=== PATIENT | male | born 2005 | race Caucasian/White ===

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

== ENCOUNTER 2024-09-28 18:00 | Emergency (ER) | payer OTHER, SELFPAY ==
--- NOTE | 2024-09-28 18:02 | ED_ITS ---
HPI - URI/Sore Throat General Chief Complaint: Upper Respiratory Infection Stated Complaint: Cold Like Time Seen by Provider: 09/28/24 18:02 Source: patient Mode of arrival: ambulatory Limitations: no limitations History of Present Illness HPI Narrative: Wilber is a 19-year-old male patient presenting to the clinic today with complaints cough, headache, sore throat, nasal congestion, postnasal drip, and low-grade fever. He reports symptoms have been going on for approximately 6-7 days. Feels like he has got some chest tightness and pain in his chest when coughing. MD elicited complaint: sore throat and nasal congestion Related Data Home Medications ?Medication ?Instructions ?Recorded ?Confirmed ?Last Taken ?Type albuterol 90 mcg/actuation aerosol mcg inhalation 09/28/24 Unknown History inhaler Allergies Allergy/AdvReac Type Severity Reaction Status Date / Time No Known Allergies Allergy Verified 09/28/24 18:10 Review of Systems Review of Systems: Pertinent positives per HPI. Patient denies any rash,visual changes, dizziness, palpitations, nausea, vomiting, diarrhea, constipation, abdominal pain, or any urinary issues. PMFSH Comments At the time of my signature, I reviewed and agree with the nursing past medical, surgical, social, and family history. There is no relevant family history pertinent to the patient complaint. Exam Narrative: General: Well-developed, well nourished, in no apparent distress Head: Normocephalic, atraumatic Eyes: Pupils equally round and reactive to light bilaterally, EOM intact, sclera and conjunctive clear, no discharge, lids normal Ears: TMs intact and congested, ear canals clear, no drainage, grossly hearing normal. Nose: Nares patent, clear nasal discharge, severe inflammation, maxillary sinus tenderness. Mouth: Oral pharynx red without lesions or masses, good dentition, MMM. Postnasal drip Neck: Supple, trachea midline, no enlargement of anterior or posterior cervical nodes, no thyroid masses or goiter palpable. Cardio: Regular rate and rhythm, s1 and s2 normal, no murmur appreciated. Resp: Lung sounds tight diminished in the bases, no rhonchi, rales, wheezing or rubs. DuoNeb treatment was given and lung sounds aeration improved Course Course Emergency Course: Portions of this record may have been created with voice recognition software. Level of Care: Express Care Visit Vital Signs Vital signs: Vital Signs Temperature 36.9 C 09/28/24 18:09 Pulse Rate 111 H 09/28/24 18:09 Respiratory Rate 18 09/28/24 18:09 Blood Pressure 148/80 H 09/28/24 18:09 Pulse Oximetry 100 09/28/24 18:09 Oxygen Delivery Room Air 09/28/24 18:09 Temperature 36.9 C 09/28/24 18:09 Pulse Rate 111 H 09/28/24 18:09 Respiratory Rate 18 09/28/24 18:09 Blood Pressure 148/80 H 09/28/24 18:09 Pulse Oximetry 100 09/28/24 18:09 Oxygen Delivery Room Air 09/28/24 18:09 Vital signs reviewed MDM - URI/Sore Throat MDM Narrative Medical decision making narrative: At the time of visit patient is resting comfortably on the exam table. Patient appears to be nontoxic. Labs: Strep test was obtained and negative in the clinic today. Send strep for culture Medications: Hand-held neb DuoNeb treatment given in the clinic today Plan: I suspect patient has URI with cough and congestion/postnasal drip versus atypical pneumonia. Prescription for azithromycin, Tessalon Perles, prednisone, albuterol solution, and albuterol inhaler was sent to the pharmacy Supportive measures were discussed with the patient and they voiced understanding discharge instructions and agrees to treatment plan. Return precautions reviewed Differential Diagnosis Differential diagnosis: Likely upper respiratory infection, otitis media, sinusitis, viral infection, bronchitis, influenza, pharyngitis and other (COVID) Lab Data Labs: Lab Results 09/28/24 Range/Units 18:26 POC Grp A Strep Screen Negative (Negative) Discharge Plan Discharge Clinical Impression: Upper respiratory infection with cough and congestion, PND (post-nasal drip) Patient Disposition: Home Condition: Stable Instructions: Antibiotic Form, Cold Symptoms (ED) Additional Instructions: Strep test was negative in the clinic today. We will send strep for culture if this comes back positive we will contact you in place you on antibiotics at that time Take prescription medications only as prescribed-albuterol inhaler, albuterol nebulizer solution, prednisone, azithromycin, and Tessalon Perles Increase fluids and stay well hydrated Tylenol/motrin for pain/fever Flonase and OTC antihistamines as directed Vicks vapor rub to open sinuses Sinus rinses for congestion Cepacol spray, cough drops, throat lozenges, warm tea with honey/lemon, gargle salt water to soothe throat BRAT diet for diarrhea Clear liquids x 24 hours then advance as tolerated for nausea/vomiting Go to the ED if you develop a worsening in your condition- high fever not controlled by Tylenol or Motrin, dehydration, weakness, lethargy, shortness of breath, or chest pain. Follow up with your PCP in 3-5 days if symptoms persist. Patient Language: Portuguese Prescriptions: New benzonatate 200 mg capsule 200 mg PO TID 7 Days Qty: 21 0RF prednisone 20 mg tablet 40 mg PO DAILY 5 Days Qty: 10 0RF albuterol sulfate 90 mcg/actuation HFA aerosol inhaler 2 puff inhalation Q4-6H PRN (Reason: shortness of breath or wheezing) 30 Days Qty: 8.5 0RF albuterol sulfate 2.5 mg /3 mL (0.083 %) solution for nebulization 2.5 mg inhalation Q4H PRN (Reason: shortness of breath or wheezing) 30 Days Qty: 90 0RF azithromycin 250 mg tablet See Rx Instructions .ROUTE .COMPLEX Qty: 6 0RF Rx Instructions: For 250 mg dose pack: take 500 mg today (day 1), then 250 mg for 4 days (days 2-5) No Action albuterol 90 mcg/actuation aerosol inhalation Follow-up/Referrals: Raul Wong MD [Physician] - Time of Disposition: 18:04 Quality NIHSS Nursing Documentation ED NIHSS nursing documentation: reviewed/agree
[2024-09-28 18:09] VITALS: BP 148/80; PULSE 111; RESP 18; TEMP 36.9; O2SAT 100
[2024-09-28] MEDS: IPRATROPIUM 0.5 MG/ALBUTEROL SULFATE 2.5 MG AMPUL.NEB 3 ML INHALATION (18:18)
--- OUTSIDE RECORDS SUMMARY | 2024-09-28 18:26 | XMS_ITS | Clinical Summary ---
Author Organization [facility] Address [address] [place] [address] Care Team Providers Care Centrifugal Separator Name Role Phone Mimi Whitten MD Primary Care Provider [phone] Allergies Active Allergy Reactions Criticality Noted Date Comments Banana Stomach upset Low 01/18/2016 Dog Dander Sneezing Low 05/02/2020 Lactose Stomach upset Low 05/02/2020 Medications multivitamin tablet Active loratadine (CLARITIN) 10 mg tablet Take 1 tablet (10 mg total) by mouth daily Active fluticasone propionate (FLONASE) 50 mcg/actuation nasal spray Administer 1 spray into each nostril daily Active Arazlo 0.045 % lotion APPLY A PEA SIZED AMOUNT EXTERNALLY TO THE FACE EVERY NIGHT AT BEDTIME 3 Active Active Problems No known active problems Family History Medical History Relation Name Comments Irritable bowel syndrome Father Crohn's disease Maternal Grandmother Eczema Mother Family history of eczema - (Added by TW Conv) Relation Name Status Comments Father Maternal Grandmother Mother Social History Tobacco Use Types Packs/Day Years Used Date Smoking Tobacco: Never Tobacco Cessation:Counseling Given: Not Answered Sex and Gender Information Value Date Recorded Sex Assigned at Not on file Legal Sex Male 6:45 AM PLSQL DEVELOPER Gender Identity Not on file Sexual Orientation Not on file Obstetrics History Last Filed Vital Signs Vital Sign Reading Time Taken Comments Blood Pressure 153/80 06/12/2023 11:18 AM PLSQL DEVELOPER Pulse 80 06/12/2023 11:18 AM PLSQL DEVELOPER Temperature 36.8 C (98.3 F) 06/12/2023 11:18 AM PLSQL DEVELOPER Respiratory Rate 20 06/12/2023 11:1 8 AM PLSQL DEVELOPER Oxygen Saturation 97% 06/12/2023 11: 18 AM PLSQL DEVELOPER Inhaled Oxygen Concentration - - Weight 77.9 kg (171 lb 11.8 oz) 024 11:18 AM PLSQL DEVELOPER Height 175.4 cm (5' 9.06 ) 06/12/2023 1 1:18 AM PLSQL DEVELOPER Body Mass Index 25.32 06/12/2023 11:18 AM PLSQL DEVELOPER Plan of Treatment Health Maintenance Due Date Last Done Comments Depression Screening 2004 Hepatitis C Screening 2004 Meningococcal B Vaccine (2 o f 2 - Trumenba SCDM 2-dose series) 07/02/2021 12/30/2020 Regular Well Visit/Exam 18-03/25/2022 HPV Vaccines (2 - Male 3-dos e series) 04/10/2022 03/13/2022 Covid-19 Vaccine (3 - 2023-2 5 season) 2024 02/03/2021, 01/13/2021 Influenza Vaccine (#1) 2024 , 04/10/2018, 03/05/2017, Additional history exists DTaP/Tdap/Td Vaccine (7 - Td or Tdap) 10/12/2024 10/12/2014, 03/29/2008, 09/25/2005, Additional history exists Hepatitis B Screening Completed 2004 , 2004, 2004 Pneumococcal vaccine <65 Completed 006, 2004, 2004, Additional history exists Varicella Vaccines Completed 08/25/2009, 03/27/2005 Meningococcal Vaccine Completed 12/30/2020, 016 Insurance [facility] [address] [place] [place] [address] [place] [address] [place] [address] [facility] Care Teams Centrifugal Separator Relationship Specialty Start Date End Date Mimi Whitten MD [address] [place] [address] PCP - General Pediatrics 04/20/20
--- OUTSIDE RECORDS SUMMARY | 2024-09-28 18:26 | XMS_ITS | Referral Summary ---
Author Organization [facility] Address [address] [place] [address] Care Team Providers Care Suit Maker Name Role Phone Mimi Whitten MD Primary Care Provider [phone] Allergies Active Allergy Reactions Criticality Noted Date [...] Active Active Problems No known active problems Social History Tobacco Use Types Packs/Day Years Used Date Smoking Tobacco: Never Tobacco Cessation:Counseling Given: Not Answered Sex and Gender Information Value Date Recorded Sex Assigned at Not on file Legal Sex Male 6:45 AM LEASING CONSULTANT Gender Identity Not on file Sexual Orientation Not on file Last Filed Vital Signs Vital Sign Reading Time Taken Comments Blood Pressure 153/80 06/12/2023 11:18 AM LEASING CONSULTANT Pulse 80 06/12/2023 11:18 AM LEASING CONSULTANT Temperature 36.8 C (98.3 F) 06/12/2023 11:18 AM LEASING CONSULTANT Respiratory Rate 20 06/12/2023 11:1 8 AM LEASING CONSULTANT Oxygen Saturation 97% 06/12/2023 11: 18 AM LEASING CONSULTANT Inhaled Oxygen Concentration - - Weight 77.9 kg (171 lb 11.8 oz) 024 11:18 AM LEASING CONSULTANT Height 175.4 cm (5' 9.06 ) 06/12/2023 1 1:18 AM LEASING CONSULTANT Body Mass Index 25.32 06/12/2023 11:18 AM LEASING CONSULTANT Plan of Treatment Not on file Insurance [place] [place] [address] [employer] [place] Care Teams Suit Maker Relationship Specialty Start Date End Date Mimi Whitten MD [address] [place] [address] PCP - General Pediatrics 04/20/20
[2024-09-28 18:28] LABS: EDSTREPNEGPOS1 Negative (Negative)
== END 2024-09-28 18:43 | disposition home or self-care (01) ==
PROVIDERS: Emergency Provider Nurse Practitioner Family; PCP Student in an Organized Health Care Education/Training Program
DX: J06.9 Acute upper respiratory infection, unspecified (principal); R05.9 Cough, unspecified; R09.82 Postnasal drip
CPT/HCPCS: 87081; 87880; 94640; 99203; G0463